=== PATIENT | male | born 1950 | race Caucasian/White ===

== ENCOUNTER 2017-01-08 16:36 | Inpatient (IN) | payer MEDICARE, MEDICAID ==
[~2017-01-08] VITALS: Ht 182.8 cm; Wt 43.3 kg
--- NOTE | ~2017-01-08 | CON ---
[place], [place] REPORT OF CONSULTATION NAME: [facility]Z [id number] UNIT #: [id number] ROOM: 426 DOCTOR: TINO DEY MD BIRTHDATE: [birth year] DOS: 01/11/2017 CARDIOLOGY CONSULTATION CHIEF COMPLAINT: Bradycardia. HISTORY OF PRESENT ILLNESS: The patient is an unfortunate 66-year-old man with a history of [place] disease. He is unable to get of cogent history and no family members are available at this time. The patient apparently has been a resident of a fpc for several years and has been steadily deteriorating. He is seen by a specialist in [place]. Apparently, family members went to the patient's fpc to visit on 01/08/2017 and saw that he was not eating or drinking. They were afraid that he was "being neglected" and requested that he be brought to the hospital for reassessment. The chart notes indicate that the patient was told that he could not swallow and would have to be fed through a PEG tube. He refused the PEG tube initially. On admission, he appeared cachectic chest x-ray showed a right upper lobe and right lower lobe infiltrates. White count was elevated at 21,000 on admission. He was treated with antibiotics and did agree to placement of a PEG tube. This is being utilized to improve his nutrition and hydration. The patient was on a monitor and was noted to have bradycardia to a rate of the low 40s when he was sleeping. Because of this, Cardiology was requested for an assessment. Once again, it is very difficult to get a history from the patient, but he denies any history of heart disease, heart murmurs or myocardial infarction. He is not on any cardiac medications and specifically he is not on any medications that slow the heart rate. TSH is normal. His heart rate during the day when he is awake, is appropriate. PAST MEDICAL HISTORY: 1. [place] disease. 2. Protein calorie malnutrition. 3. Chronic anemia. 4. Previous history of tobacco use. FAMILY HISTORY: His father had [place] disease. His mother of an unknown cancer. MEDICATIONS: Prior to admission included only acetaminophen. ALLERGIES: The patient has no known drug allergies. REVIEW OF SYSTEMS: Impossible as the patient has a constant motion and very severe difficulty in speaking or answering questions. [place], [place] REPORT OF CONSULTATION NAME: [facility] GT[facility] [id number] UNIT #: [id number] ROOM: 426 DOCTOR: TINO DEY MD BIRTHDATE: [birth year] SOCIAL HISTORY: The patient is a resident of a fpc. The chart indicates that he has had alcohol and tobacco use in the past, but does not use illicit drugs. PHYSICAL EXAMINATION: GENERAL: The patient is a cachectic white male who looks older than his stated age. He is constantly rising with choreiform movements. His speech is essentially unintelligible. VITAL SIGNS: Pulse is 64 and regular, blood pressure is 106/60, he is afebrile. He weighs 43.3 kg and has a body mass index of 13. HEENT: Normocephalic, atraumatic. Extraocular muscles are intact. Sclerae are clear. Pupils are round and react to light. The oral mucosa is dry. His lips are parched. His tongue is midline. NECK: Supple. He has no jugular distention. Carotids are full and I heard no bruits. LUNGS: Respirations are unlabored. CHEST: Has decreased breath sounds bilaterally with scattered crackles bilaterally. He has no chest wall tenderness. HEART: Has a regular rhythm. He has a soft S4 gallop, but no S3 or murmur. The PMI is not displaced. ABDOMEN: Soft and normally active without masses, organomegaly or bruits. EXTREMITIES: Showed no clubbing, cyanosis or edema. Peripheral pulses are easily palpated in the feet. DIAGNOSTIC STUDIES: Electrocardiogram shows sinus tachycardia at a rate of 101. He does have voltage criteria for left ventricular hypertrophy. There is significant baseline artifact. IMPRESSIONS: 1. [place] disease. 2. Right-sided pneumonia. 3. History of aspiration and dysphagia. 4. Malnutrition. 5. Cachexia. PLAN: The patient's bradycardia on the monitor was moderate and mostly associated with sleep. He shows no signs of heart failure on exam and the monitor did not show any prolonged pauses. There is no history of syncope. The patient's ultimate prognosis is related to his [place]'s disease, which is known to be progressive and fatal. He does not show any signs of active heart disease at this time and does not show any signs that bradycardia during sleep has resulted in any symptoms. He therefore is not a candidate for pacemaker therapy. Particularly, pacemaker therapy would not prolong his life, nor would it improve his quality of life. We should avoid any rate-slowing medications. No other cardiac evaluation or management strategies would be available at this time. We will sign off, but remain available to assist as needed. [place], [place] REPORT OF CONSULTATION NAME: LARRY GTZ UNIT #: [id number] ROOM: 426 DOCTOR: TINO DEY MD BIRTHDATE: [birth year] We thank the hospitalist physicians for asking our advice regarding his care. TINO DEY MD CM:CONSTR:REPORT OF CONSULTATION 1513 01/12/17 0542 interface
--- NOTE | ~2017-01-08 | PROC NOTE ---
[place], [place] PROCEDURE NOTE NAME: [id number] UN[facility] #: [id number] ROOM: 426 DOCTOR: ALONSO MOY BIRTHDATE: [birth year] DOS: 01/09/2017 MODIFIED BARIUM SWALLOW LOCATION: [facility], room 426, bed 1. DOCTOR: Dr. Abbott RADIOLOGIST: Dr. Ruead. BACKGROUND INFORMATION: The patient is a 66-year-old male who was seen for modified barium swallow. This test was ordered to determine most appropriate means of nutrition. The patient is diagnosed with [place] disease, acute renal failure and malnutrition. The patient comes from a [facility] with reports of difficulty swallowing food and liquids. The patient reportedly has been recommended a PEG tube in the past, which he refused. He is currently ordered n.p.o. For today's assessment, the patient was alert, but with significant involuntary jerking movements that increased with any purposeful movement. Due to this, the patient had difficulty maintaining upright positioning for the test, viewing during the study was sometimes difficult due to this. Respiratory status at this time was within normal limits. Oral peripheral examination revealed edentulous status. Lingual and labial skills were moderately impaired in coordination. Volitional swallow was absent. Volitional cough was poor. METHODS AND MATERIALS USED FOR THE EXAM: The patient was positioned in the lateral plane and examination was viewed under fluoroscopy. The patient was presented with pureed consistencies presented in half teaspoon amounts to assess swallowing skills. ORAL PHASE: The patient achieved adequate labial seal around spoon with no anterior loss. Bolus formation was severely impaired, oral transit of the bolus was moderately impaired. The patient achieved adequate tongue to palate contact. Tongue to posterior pharyngeal wall contact was poor. Velar functioning was within normal limits with no nasal regurgitation. PHARYNGEAL PHASE: The pharyngeal swallow was weak in general with reduced laryngeal elevation. Once the pharyngeal swallow triggered, pooling occurred in the vallecula. The patient was not aware of this residue and made no attempt to clear it. This was unable to be cleared with any strategy and residue did eventually spill over resulting in silent penetration after the swallow. Due to severity, no other presentations were offered and test was terminated. ESOPHAGEAL PHASE: This phase of the swallow was not formally assessed during this examination. IMPRESSIONS AND RECOMMENDATIONS: Based upon assessment results, this 66-year-old patient presents with a severe oropharyngeal dysphagia. He exhibited poor bolus formation and transfer. Significant pooling in the [place], [place] PROCEDURE NOTE NAME: LARRY GTZ UNIT #: [id number] ROOM: 426 DOCTOR: ALONSO MOY BIRTHDATE: [birth year] vallecula occurred which patient was unable to clear, which spilled over resulting in penetration after the swallow, this was silent as no cough was elicited. Due to severity, no other consistencies were attempted. Recommend n.p.o. status, followup therapy is not warranted at this time due to severity of swallowing skills. Results and recommendations were shared with the patient's nurse who verbalized understanding. Thank you very much for this referral. Should you have any questions regarding this patient, please contact the speech pathologist at [phone]. ALONSO MOY CM:PROCNOTE:PROCEDURE NOTE [id number] ALONSO MOY
--- NOTE | ~2017-01-08 | CON ---
[place], [place] REPORT OF CONSULTATION NAME: LARRY GTZ UNIT #: [id number] ROOM: 426 DOCTOR: CHAZ LI MD BIRTHDATE: [birth year] DOS: 01/10/2017 HISTORY OF PRESENT ILLNESS: A 66-year-old who was presented with chief complaint of a neurogenic dysphagia, Leatha chorea, disabled, failure to thrive, emaciation, protein malnutrition. I have been asked for assessment of the patient for PEG tube. Lactic acid 1.3. INR 1.2. CBC differential white blood cells 13, H and H of 12 and 38, platelet count 280. Comprehensive metabolic panel, elevated BUN and creatinine at 103 and 2.3. GFR 34. Hypernatremia of 157, hyperchloremia of 122, dehydration, myoglobin of 7800. CPK-MB elevation all has been noticed initially. Blood cultures were negative. Urine cultures negative. CBC differential continued to be reassessed, H and H of 11 and 35. As well as comprehensive metabolic panel with some changes in the lab findings still remains with hypernatremia and hyperchloremia. PAST MEDICAL HISTORY: [place] chorea, failure to thrive, dementia, decubitus ulcer. PAST SURGICAL HISTORY: None to be obtained. SOCIAL HISTORY: Nonsmoker, nonalcohol consumer at the present time; however, history of alcohol and nicotine dependency. FAMILY HISTORY: Noncontributory. ALLERGIES: No known medications. MEDICATIONS: List reviewed. REVIEW OF SYSTEMS: Cannot be obtained from him due to the cognitive incapability. PHYSICAL EXAMINATION: GENERAL: Extremely frail, emaciated patient. HEENT: Head normocephalic, nontraumatic. Eyes, pupil round and reactive. Mouth and buccal mucosa benign. Edentulous. Mouth: Dry. No thrush. NECK: Supple. LUNGS: Few scattered rhonchi. HEART: Normal sinus rhythm, no gallop, no murmur. ABDOMEN: Soft. No hepato-organomegaly, emaciated muscles. Bowel sounds present. EXTREMITIES: No cyanosis, no pedal edema. NEUROLOGIC: Alert and disoriented. IMPRESSION: Neurogenic dysphagia Leatha chorea, protein malnutrition, emaciation, bedridden, difficulty swallowing, rhabdomyolysis all has been recognized. PLAN AND DISCUSSION: We are going to proceed with PEG tube placement. [place], [place] REPORT OF CONSULTATION NAME: LARRY GTZ UNIT #: [id number] ROOM: 426 DOCTOR: JEN PIZANO,CHAZ BIRTHDATE: [birth year] CHAZ LI MD CM:CONSTR:REPORT OF CONSULTATION 1200 01/11/17 0618 interface
--- NOTE | ~2017-01-08 | CON ---
[place], [place] REPORT OF CONSULTATION NAME: LARRY GTZ UNIT #: [id number] ROOM: 426 DOCTOR: CHAZ LI MD BIRTHDATE: [birth year] DOS: 01/10/2017 CHIEF COMPLAINT: A 66-year-old patient who was presented with chief complaint of [place] chorea, protein malnutrition, unable to swallow. PROCEDURE: Today's procedure part of investigation is EGD plus PEG tube placement. PREMEDICATION: Versed and Diprivan. SCOPE: Olympus forward-viewing gastroscope Q10 video. REPORT: After putting the patient in the left lateral position and application of lubricant to the scope, the scope was introduced; thereafter, under direct visualization, I advanced through the length of esophagus without difficulty. Gastric pouch was entered. Gastritis was noticed. Duodenal bulb, second and third part within normal limits. Anterior abdominal wall, aseptically was prepped. A 2 mL of Xylocaine was injected in the subxiphoid area corresponding with best transillumination site. Trocar was introduced. Guidewire was advanced, grasped with forceps, orally pulled. Gastrostomy tube [place] 20 was anchored to the tube, I have orally pulled, recovered from the surface of the abdomen. Anchors placed, patency checked, tolerated the procedure well. IMPRESSION: Percutaneous endoscopic gastrostomy for neurogenic dysphagia, advanced Cook chorea, protein malnutrition and emaciation, PEG tube position was verified at 1 cm area. I thank you very much indeed for your kind referral. PLAN: Start utilization of feeding tube within 5 hours for feed and within the next hour for p.o. medications to be delivered per PEG. CHAZ LI MD CM:CONSTR:REPORT OF CONSULTATION 1200 01/11/17 0623 interface
--- NOTE | ~2017-01-08 | PR ---
[place], [place] PROGRESS NOTE NAME: LARRY GTZ UNIT #: [id number] ROOM: 426 DOCTOR: JENARO SINGH MD BIRTHDATE: [birth year] DOS: 01/12/2017 NEPHROLOGY FOLLOWUP NOTE SUBJECTIVE: The patient was seen and examined. He is awake, in no apparent distress. He had his PEG tube yesterday. He is receiving tube feeds. PHYSICAL EXAMINATION: VITAL SIGNS: Showed a temperature of 98.2, pulse 65, respiratory rate 20, blood pressure 110/77. HEENT: Shows no JVD. LUNGS: Clear. HEART: Normal S1, S2. No rub, thrill or gallop. ABDOMEN: Soft and nontender. There is no organomegaly. EXTREMITIES: Showed no edema. SKIN: Showed no rash. LABORATORY DATA: Hemoglobin 11.1, white count of 8.2, platelets of 147. Sodium 146, potassium 4.4, CO2 of 32, BUN 25, creatinine 0.8, phosphorus 2.1, calcium 8.1, magnesium 1.7, albumin of 2.3. IMPRESSION: 1. Acute kidney injury, which has resolved. The patient's renal function is near baseline. BUN continues to improve. 2. Hypernatremia. This is also improving. Can discontinue IV fluids when tube feeds are at goal. Would start free water flushes at 300 mL every 6 hours for now and adjust based off of laboratory data. 3. Anemia. The patient's H and H is stable. 4. Pneumonia. Antibiotics as per the primary service. 5. Dysphagia. The patient is status post feeding tube and is now receiving tube feeds. Nothing more to add from a renal standpoint. We will sign off for now. Please call with questions or if needed again. [place], [place] PROGRESS NOTE NAME: LARRY GTZ UNIT #: [id number] ROOM: 426 DOCTOR: JENARO SINGH MD BIRTHDATE: [birth year] JENARO SINGH MD CM:PNTRANS 1729 0424 JENARO SINGH MD 01/13/17 0423 interface
[~2017-01-08 16:36] MED LIST: APAP/HYDROCODON1 T46 PO; AUGMENTIN 875875 MG PO; B12,B-12,B 12500 MC1 PO; BOOST HIGH PRO240 ML PO; FLORASTOR250 MG PO; LOTRISONE 0.05%1 CRE T; MAPAP325 MG PO; MOTRIN800 MG PO; NO DAILY MEDS; NORCO 325 MG-51 TAB PO; THERA-M ENHANCE1 TAB PO; VANCOMYCIN HCL1 GM IV; XENAZINE25 MG PO; ZOSYN 3.373.375 GM/5 IV
[2017-01-08 17:06] VITALS: BP 92/40
[2017-01-08 17:46] LABS: HEMATOCRIT 38.2 % (42.0-52.0); HEMOGLOBIN 12.1 g/dl (14.0-18.0); MEAN CELL VOLUME 93.6 fl (80.0-94.0); MEAN CORPUSCULAR HGB 29.7 pg (27.0-31.0); MEAN CORPUSCULAR HGB CONC 31.7 g/dl (33.0-37.0); MEAN PLATELET VOLUME 11.5 fl (9.6-12.3); PLATELET COUNT AUTOMATED 280 10*3/uL (130-400); RED BLOOD COUNT 4.08 10*6/uL (4.50-5.90); RED CELL DISTRI WIDTH 13.8 % (0-14.5); WHITE BLOOD COUNT 13.8 10*3/uL (4.8-10.8)
[2017-01-08 17:54] LABS: INTERNATIONAL NORM RATIO 1.2 (2.0-3.5); PROTHROMBIN TIME 12.7 SECONDS (9.0-12.4)
[2017-01-08 18:03] LABS: ALBUMIN 3.1 gm/dl (3.1-4.5); ALKALINE PHOSPHATASE 107 U/L (45-117); BILIRUBIN, TOTAL 0.4 mg/dl (0.2-1.0); BUN 103 mg/dl (7-24); C-REACTIVE PROTEIN 2.91 MG/DL (0-0.3); CARBON DIOXIDE 27 mmol/L (21-32); CHLORIDE 120 mmol/L (98-107); CPK 975 U/L (39-308); EST GLOM FILT AFRICAN AMERICAN 34 ml/min; GLUCOSE 79 mg/dL (65-99); MAGNESIUM 3.1 mg/dL (1.5-2.1); POTASSIUM 4.7 mmol/L (3.5-5.1); SGOT/AST 71 IU/L (3-35); SODIUM 157 mmol/L (136-145); TOTAL PROTEIN 6.2 gm/dL (6.4-8.2)
[2017-01-08 18:05] VITALS: BP 90/40
[2017-01-08 18:05] LABS: SGPT/ALT 54 U/L (12-78); TROPONIN I < 0.015 ng/ml (<0.045)
[2017-01-08 18:07] LABS: CKMB 32.9 ng/ml (0.5-3.6)
[2017-01-08 18:08] LABS: LYMPHOCYTE # 0.6 10*3/uL (1.3-4.4); MONOCYTE # 0.4 10*3/uL (0.1-1.0); NEUTROPHIL # 12.8 10*3/uL (2.3-7.9); NEUTROPHILS 93 % (47-73); PLATELET SUFFICIENCY NORMAL (NORMAL); TOTAL CELLS COUNTED 100 #CELLS; TOXIC GRANULATION SLIGHT
[2017-01-08 18:09] LABS: BURR CELLS FEW
[2017-01-08 18:11] LABS: SCHISTOCYTES FEW
[2017-01-08] MEDS ORDERED: TYLENOL325 M2 PO (18:59)
[2017-01-08 19:00] VITALS: BP 94/50
[2017-01-09] VITALS: BP 99/55
[2017-01-09 06:51] LABS: HEMATOCRIT 36.9 % (42.0-52.0); HEMOGLOBIN 11.5 g/dl (14.0-18.0); MEAN CELL VOLUME 94.9 fl (80.0-94.0); MEAN CORPUSCULAR HGB 29.6 pg (27.0-31.0); MEAN CORPUSCULAR HGB CONC 31.2 g/dl (33.0-37.0); PLATELET COUNT AUTOMATED 234 10*3/uL (130-400); RED BLOOD COUNT 3.89 10*6/uL (4.50-5.90)
[2017-01-09 07:14] LABS: LYMPHOCYTE # 0.6 10*3/uL (1.3-4.4); NEUTROPHIL # 20.4 10*3/uL (2.3-7.9); NEUTROPHILS 97 % (47-73); TOTAL CELLS COUNTED 100 #CELLS
[2017-01-09 07:16] LABS: ACANTHOCYTES FEW; BURR CELLS FEW; INTERNATIONAL NORM RATIO 1.2 (2.0-3.5); PLATELET SUFFICIENCY NORMAL (NORMAL); PROTHROMBIN TIME 12.7 SECONDS (9.0-12.4); SCHISTOCYTES FEW
[2017-01-09 07:34] LABS: MAGNESIUM 2.9 mg/dL (1.5-2.1); POTASSIUM 4.8 mmol/L (3.5-5.1)
[2017-01-09 07:39] LABS: FOLIC ACID 11.72 ng/mL (>5.38); VITAMIN D, 25-HYDROXY 8.3 ng/mL (30-100)
[2017-01-09 07:46] LABS: PHOSPHOROUS 4.9 mg/dL (2.5-4.9); THYROID STIM HORMONE (HS) 0.665 uIU/ml (0.358-4.75)
[2017-01-09 07:57] LABS: BILIRUBIN NEGATIVE (NEGATIVE); BLOOD 3+ (NEGATIVE); COLOR YELLOW (YELLOW); GLUCOSE NEGATIVE (NEGATIVE); KETONE NEGATIVE (NEGATIVE); LEUKO ESTERASE NEGATIVE (NEGATIVE); NITRITE NEGATIVE (NEGATIVE); PROTEIN TRACE (NEGATIVE); UROBILINOGEN 0.2 E.U./dl (0.2-1.0)
[2017-01-09 08:00] VITALS: BP 103/72; BP 110/50
[2017-01-09 08:10] LABS: BACTERIA 2+; CLARITY SL CLOUDY (CLEAR); RBC TNTC rbc/hpf (0-2); URINE REFLEX COMMENT YES (NO)
[2017-01-09 08:11] LABS: URIC ACID CRYSTALS 3+
[2017-01-09 12:00] VITALS: BP 99/57
[2017-01-09 16:00] VITALS: BP 123/53
[2017-01-09 20:00] VITALS: BP 106/61
[2017-01-10] VITALS (9 sets, daily range): BP systolic 81–131; BP diastolic 44–73
[2017-01-10 07:03] LABS: HEMATOCRIT 35.8 % (42.0-52.0); HEMOGLOBIN 11.1 g/dl (14.0-18.0); MEAN CORPUSCULAR HGB 29.4 pg (27.0-31.0); MEAN PLATELET VOLUME 11.9 fl (9.6-12.3); PLATELET COUNT AUTOMATED 195 10*3/uL (130-400); RED BLOOD COUNT 3.77 10*6/uL (4.50-5.90); RED CELL DISTRI WIDTH 14.2 % (0-14.5); WHITE BLOOD COUNT 17.2 10*3/uL (4.8-10.8)
[2017-01-10 07:19] LABS: ALBUMIN 2.5 gm/dl (3.1-4.5); BILIRUBIN, TOTAL 0.4 mg/dl (0.2-1.0); MAGNESIUM 2.6 mg/dL (1.5-2.1); PHOSPHOROUS 3.2 mg/dL (2.5-4.9); POTASSIUM 4.6 mmol/L (3.5-5.1); TOTAL PROTEIN 5.5 gm/dL (6.4-8.2)
[2017-01-10 07:23] LABS: LYMPHOCYTE # 0.7 10*3/uL (1.3-4.4); NEUTROPHIL # 16.5 10*3/uL (2.3-7.9); NEUTROPHILS 96 % (47-73); PLATELET SUFFICIENCY NORMAL (NORMAL); TOTAL CELLS COUNTED 100 #CELLS
[2017-01-11] VITALS: BP 118/72
[2017-01-11 08:00] VITALS: BP 108/57
[2017-01-11 10:03] LABS: BASO % 0.1 % (0.0-1.0); EOS # 0.3 10*3/uL (0.0-0.4); EOS % 2.6 % (1.0-4.0); HEMATOCRIT 34.9 % (42.0-52.0); HEMOGLOBIN 10.7 g/dl (14.0-18.0); IG # 0.1 10*3/uL (0.0-0.1); LYMPH # 0.6 10*3/uL (1.3-4.4); LYMPH % 4.8 % (27.0-41.0); MEAN CELL VOLUME 94.8 fl (80.0-94.0); MEAN CORPUSCULAR HGB 29.1 pg (27.0-31.0); MEAN CORPUSCULAR HGB CONC 30.7 g/dl (33.0-37.0); MEAN PLATELET VOLUME 12.1 fl (9.6-12.3); MONO # 0.4 10*3/uL (0.1-1.0); MONO % 3.1 % (3.0-9.0); NEUT # 10.4 10*3/uL (2.3-7.9); NEUT % 88.7 % (47.0-73.0); PLATELET COUNT AUTOMATED 156 10*3/uL (130-400); RED BLOOD COUNT 3.68 10*6/uL (4.50-5.90); RED CELL DISTRI WIDTH 14.3 % (0-14.5); WHITE BLOOD COUNT 11.7 10*3/uL (4.8-10.8)
[2017-01-11 10:32] LABS: ALBUMIN 2.3 gm/dl (3.1-4.5); ALKALINE PHOSPHATASE 80 U/L (45-117); BILIRUBIN, TOTAL 0.3 mg/dl (0.2-1.0); BUN 39 mg/dl (7-24); CARBON DIOXIDE 31 mmol/L (21-32); CHLORIDE 115 mmol/L (98-107); EST GLOM FILT AFRICAN AMERICAN > 60 ml/min; GLUCOSE 94 mg/dL (65-99); PHOSPHOROUS 1.8 mg/dL (2.5-4.9); POTASSIUM 4.5 mmol/L (3.5-5.1); SGOT/AST 63 IU/L (3-35); SGPT/ALT 68 U/L (12-78); SODIUM 151 mmol/L (136-145); TOTAL PROTEIN 5.2 gm/dL (6.4-8.2)
[2017-01-11 12:00] VITALS: BP 106/60
[2017-01-11 16:00] VITALS: BP 105/62
[2017-01-11 18:05] LABS: ORGANISM ID Not indicated. (.); SPECIMEN SOURCE Urine (.); STREPTOCOCCUS PNEUMONIAE AG Negative (Negative)
[2017-01-11 20:00] VITALS: BP 118/61
[2017-01-12] VITALS: BP 125/63
[2017-01-12 06:20] LABS: BASO % 0.1 % (0.0-1.0); EOS # 0.2 10*3/uL (0.0-0.4); EOS % 2.8 % (1.0-4.0); HEMATOCRIT 36.6 % (42.0-52.0); HEMOGLOBIN 11.1 g/dl (14.0-18.0); LYMPH # 0.5 10*3/uL (1.3-4.4); MEAN CELL VOLUME 95.3 fl (80.0-94.0); MEAN CORPUSCULAR HGB 28.9 pg (27.0-31.0); MEAN CORPUSCULAR HGB CONC 30.3 g/dl (33.0-37.0); MEAN PLATELET VOLUME 12.5 fl (9.6-12.3); MONO # 0.4 10*3/uL (0.1-1.0); MONO % 4.5 % (3.0-9.0); NEUT # 7.1 10*3/uL (2.3-7.9); NEUT % 86.1 % (47.0-73.0); PLATELET COUNT AUTOMATED 147 10*3/uL (130-400); RED BLOOD COUNT 3.84 10*6/uL (4.50-5.90); RED CELL DISTRI WIDTH 14.2 % (0-14.5); WHITE BLOOD COUNT 8.2 10*3/uL (4.8-10.8)
[2017-01-12 06:52] LABS: ALBUMIN 2.3 gm/dl (3.1-4.5); ALKALINE PHOSPHATASE 80 U/L (45-117); BILIRUBIN, TOTAL 0.3 mg/dl (0.2-1.0); CARBON DIOXIDE 32 mmol/L (21-32); CHLORIDE 109 mmol/L (98-107); EST GLOM FILT AFRICAN AMERICAN > 60 ml/min; GLUCOSE 92 mg/dL (65-99); MAGNESIUM 1.7 mg/dL (1.5-2.1); PHOSPHOROUS 2.1 mg/dL (2.5-4.9); POTASSIUM 4.4 mmol/L (3.5-5.1); SGOT/AST 49 IU/L (3-35); SGPT/ALT 64 U/L (12-78); SODIUM 146 mmol/L (136-145); TOTAL PROTEIN 5.2 gm/dL (6.4-8.2)
[2017-01-12 06:59] LABS: BUN 25 mg/dl (7-24)
[2017-01-12 08:00] VITALS: BP 104/62
[2017-01-12 12:00] VITALS: BP 140/60
[2017-01-12 16:00] VITALS: BP 110/77
[2017-01-12 20:00] VITALS: BP 106/64
[2017-01-13] VITALS: BP 132/72
[2017-01-13 07:11] LABS: ALBUMIN 2.2 gm/dl (3.1-4.5); ALKALINE PHOSPHATASE 76 U/L (45-117); BILIRUBIN, TOTAL 0.2 mg/dl (0.2-1.0); CARBON DIOXIDE 35 mmol/L (21-32); CHLORIDE 104 mmol/L (98-107); EST GLOM FILT AFRICAN AMERICAN > 60 ml/min; GLUCOSE 92 mg/dL (65-99); PHOSPHOROUS 1.8 mg/dL (2.5-4.9); POTASSIUM 4.3 mmol/L (3.5-5.1); SGOT/AST 39 IU/L (3-35); SGPT/ALT 58 U/L (12-78); SODIUM 145 mmol/L (136-145); TOTAL PROTEIN 5.2 gm/dL (6.4-8.2)
[2017-01-13 07:12] LABS: BUN 14 mg/dl (7-24)
[2017-01-13 08:00] VITALS: BP 102/75
[2017-01-13 12:00] VITALS: BP 104/64
[2017-01-13 16:00] VITALS: BP 103/58
[2017-01-13 20:00] VITALS: BP 88/48
[2017-01-14] VITALS: BP 121/79
[2017-01-14 08:00] VITALS: BP 91/68
[2017-01-14 12:00] VITALS: BP 116/54
[2017-01-14 16:00] VITALS: BP 111/66
[2017-01-14 20:00] VITALS: BP 148/56
[2017-01-15 08:00] VITALS: BP 152/62
[2017-01-15] MEDS ORDERED: D-1000 185 MG-11 TAB PEG (10:07)
[2017-01-15] MEDS ORDERED: PROTONIX40 MG/PACK PEG (10:07)
[2017-01-15] MEDS ORDERED: TYLENOL325 M2 PEG (10:07)
[2017-01-15 12:00] VITALS: BP 153/63
== END 2017-01-15 12:44 | disposition other institution (70) | DRG 871 ==
LOC: ED 16:36 → EDHOLD 18:22 → 4E 18:22
PROVIDERS: Emergency Medicine; Internal Medicine; Internal Medicine Hospice and Palliative Medicine; Internal Medicine Nephrology
PROC: BD1BYZZ Fluoroscopy of Mouth/Oropharynx using Other Contrast (ICD-10-PCS; 2017-01-09)
PROC: 0DH68UZ Insertion of Feeding Device into Stomach, Via Natural or Artificial Opening Endoscopic (ICD-10-PCS; principal; 2017-01-10)
DX: A41.9 Sepsis, unspecified organism (principal); N17.0 Acute kidney failure with tubular necrosis; G93.41 Metabolic encephalopathy; J15.6 Pneumonia due to other Gram-negative bacteria; E43 Unspecified severe protein-calorie malnutrition; L89.101 Pressure ulcer of unspecified part of back, stage 1; E87.0 Hyperosmolality and hypernatremia; F02.81 Dementia in other diseases classified elsewhere, unspecified severity, with behavioral disturbance; M62.82 Rhabdomyolysis; G10 Huntington's disease; Z68.1 Body mass index [BMI] 19.9 or less, adult; R13.10 Dysphagia, unspecified; R65.20 Severe sepsis without septic shock; R62.7 Adult failure to thrive; E86.0 Dehydration; E87.8 Other disorders of electrolyte and fluid balance, not elsewhere classified; E83.41 Hypermagnesemia; F17.200 Nicotine dependence, unspecified, uncomplicated; R73.9 Hyperglycemia, unspecified; D53.9 Nutritional anemia, unspecified; E83.39 Other disorders of phosphorus metabolism; B35.1 Tinea unguium; M19.012 Primary osteoarthritis, left shoulder; R04.0 Epistaxis; K29.70 Gastritis, unspecified, without bleeding; Z79.1 Long term (current) use of non-steroidal anti-inflammatories (NSAID); Z80.9 Family history of malignant neoplasm, unspecified